=== PATIENT | male | born 1940 | race Caucasian/White ===

== ENCOUNTER 2023-12-16 15:03 | Inpatient (IN) ==
--- NOTE | 2023-12-16 15:05 | ED Triage Note ---
Date of Service December 16, 2023 Provider in Triage Author: Fred Banks History of Present Illness This patient was briefly evaluated while in triage. An abbreviated physical exam was performed. This patient is a 83-year-old Male who presents to the ED for evaluation of chest pressure x few days. Eyes aren't focusing well. Black stools as well. Noted to be tachyardic. Sent in by PCP today. Physical Exam GENERAL: 83 year old . In no acute distress. SKIN: No lesions or rashes. HEART: Tachycardia LUNGS: Clear to auscultation. ABDOMEN: Bowel sounds normoactive. No guarding or rigidity. No tenderness of palpation. NEURO: Alert and oriented. No deficits. MUSCULOSKELETAL: No deformities to inspection of the extremities. PSYCH: Patient is pleasant and answers all questions appropriately. Initial orders for labs and / or imaging were placed and patient was placed in the waiting area until a bed is available. Please see further documentation for the full ED course.
[2023-12-16 15:56] LABS: Basophils # (auto) 0.04 K/uL (0.00-0.20); Basophils % (auto) 0.6 %; Eosinophils # (auto) 0.08 K/uL (0.00-0.50); Eosinophils % (auto) 1.2 %; Hematocrit (blood only) 42.5 % (42.0-52.0); Hemoglobin 14.3 g/dl (14.0-18.0); Immature Granulocytes # (auto) 0.03 K/uL (0.01-0.20); Immature Granulocytes % (auto) 0.5 %; Lymphocytes # (auto) 1.32 K/uL (1.20-3.40); Lymphocytes % (auto) 19.9 %; Mean Corpuscular Hemoglobin 30.3 pg (25.0-34.0); Mean Corpuscular Hgb Conc 33.6 g/dL (32.0-36.0); Mean Platelet Volume 8.9 fL (9.4-12.4); Monocytes # (auto) 0.62 K/uL (0.11-0.59); Monocytes % (auto) 9.3 %; Neutrophils # (auto) 4.55 K/uL (1.40-6.50); Neutrophils % (auto) 68.5 %; Platelet Count 251 K/uL (130-400); RDW Coefficient of Variation 13.7 % (11.5-14.5); RDW Standard Deviation 44.8 fL (36.4-46.3); Red Blood Count 4.72 M/uL (4.70-6.10); White Blood Count 6.64 K/ul (4.8-10.8)
[2023-12-16 16:14] LABS: Albumin Globulin Ratio 1.5 (0.9-2); Albumin Level 4.3 gm/dl (3.4-5.0); BUN Creatinine Ratio 15.6 (10-20); Bilirubin,Total 0.5 mg/dl (0.2-1.0); Calcium 9.2 mg/dl (8.6-10.3); Creatinine Clr Calc Pharmacy 34.5 ml/min; Est GFR (African American) 43.2 ml/min; Est GFR (Non-African American) 37.3 ml/min; Globulin 2.9 gm/dl (2.5-4.0); Magnesium 2.1 mg/dl (1.7-2.4); Potassium 4.1 mmol/L (3.5-5.1); Total Protein 7.2 gm/dl (6.0-8.3)
[2023-12-16 16:19] LABS: Troponin I High Sensitivity 6.9 pg/ml (0-20)
[2023-12-16 16:25] LABS: INR 1.1 (0.9-1.1); Partial Thromboplastin Ratio 0.9; Partial Thromboplastin Time 23 Seconds (21-31); Prothrombin Time 11.4 Seconds (9.0-12.0)
--- NOTE | 2023-12-16 16:25 | XRay Report ---
SINGLE VIEW CHEST CLINICAL HISTORY: Chest pressure FINDINGS: A PA chest radiograph is compared to study dated 04/01/2018 and correlated with chest CT da geovanny 03/15/2022. There is a moderate hiatal hernia. The heart is enlarged noting atherosclerotic calcif ication of the thoracic aorta. The pulmonary vasculature is noncongested. Scattered calcified granulo mas are observed. Atelectasis is noted at the left lung base. No airspace consolidation or pleural ef fusion is identified. No pneumothorax is seen. The skeletal structures are osteopenic. The bony thora x is grossly intact. IMPRESSION: 1. Cardiomegaly with no active disease in the chest. 2. Hiatal hernia. ACT 112: Negative or not required by law. Electronically signed by: Varghese Rosales M.D. 12/16/2023 4:24 PM
[2023-12-16 16:28] LABS: Thyroid Stimulating Hormone 1.741 uIu/ml (0.300-4.500)
--- NOTE | 2023-12-16 16:51 | Electrocardiogram Report ---
Test Reason : Blood Pressure : / mmHG Vent. Rate : 080 BPM Atrial Rate : 080 BPM P-R Int : 174 ms QRS Dur : 120 ms QT Int : 362 ms P-R-T Axes : 071 041 042 degrees QTc Int : 417 ms Normal sinus rhythm Right bundle branch block Abnormal ECG When compared with ECG of 01-APR-2018 12:09, Right bundle branch block is now Present Confirmed by Saad Lehman ([id number]) on 12/16/2023 4:50:40 PM Referred By: Confirmed By:Saad Lehman
[2023-12-16] MEDS: PANTOprazole 80 MG in DEXTROSE 5% 100 ML IV ONE (18:29)
[2023-12-16] MEDS: PANTOPRAZOLE BOLUS/DRIP IV STA (18:46)
[2023-12-16] MEDS: PANTOprazole 40 MG in DEXTROSE 5% MINI-B 100 ML IV SCH (18:48)
--- NOTE | 2023-12-16 19:05 | History & Physical Report ---
Date of Service December 16, 2023 Assessment & Plan (1) GI bleed: Plan: Pt is a 83 yo male with PMH of peripheral neuropathy, SCC (for which he follows with a dermatology), GERD/PUD (many years ago), and hx of diverticulitis presenting by recommendation of his PCP for further evaluation. GI bleed - dark stools xdays per pt; FOBT positive - Hgb upon admission 14.3; repeat pending- type and screen ordered but blood consent NOT obtained as Hgb stable - unsure if upper GI source vs. lower GI source as pt has hx of GERD/PUD and has not had a colonoscopy for many years - low suspicion that pt's chronic ambulatory dysfunction is secondary to anemia/GI bleeding as pt's Hgb stable - will order CTAP for further evaluation especially considering pt's RUQ tenderness - will keep NPO, continue IV PPI daily, IVF - consider GI consult for inpatient scopes if Hgb drops; otherwise, recommend further discussion about outpatient scopes considering pt's age, etc Ambulatory dysfunction - pt has had previous work up including CT scan, brain MRI, and carotid doppler which all were negative - pt also had heart monitor (worn for a few days) which revealed sinus bradycardia (down to the 30s); will monitor on tele while hospitalized for arrhythmias, bradycardia, etc - pt also evaluated by neurology who concluded neuropathy is likely contributing to pt's ambulatory dysfunction - EKG upon admission showed NSR with RBBB - although previously checked, will add B12 and folate to AM labs - pt may benefit from PT/OT as an inpatient and outpatient to help with continued ambulatory dysfunction CKD - baseline appears to be 1.5-1.6 - Cr upon admission 1.67 Elevated PSA - 12/2022 10.78; elevation appears chronic- at least dating back to 2019 when pt had a prostate MRI (2019) which showed no lesions of concerns - pt's family concerned as pt's son has stage IV prostate cancer - low suspicion that pt's elevated PSA is related to malignancy as it has been chronically elevated and previously evaluated w/o concerns for malignancy Diet: NPO, IVF at 125 mL/hr DVT ppx: deferred as pt is actively bleeding Code: conditional- no intubation. Pt's is his surrogate decision maker if necessary Dispo: admit to med/tele (2) Ambulatory dysfunction: (3) Polyneuropathy: (4) Hypothyroid: (5) High prostate specific antigen (PSA): History of Present Illness Chief Complaint: concern for symptomatic anemia Primary Care Provider: AMADO Byers Pt is a 83 yo male with PMH of peripheral neuropathy, SCC (for which he follows with a dermatology), GERD/PUD (many years ago), and hx of diverticulitis present ing by recommendation of his PCP for further evaluation. Pt notes he has been having "episodes" for at least a year now. He describes them as he cannot walk straight and his eyes cannot focus. He denies black changes in his vision. He does not feel like he is going to pass out (and he has not passed out). He does not feel dizzy. He denies things spinning. He does note that he has a hx of peripheral neuropathy but this does not affect his feet- only from his knees to ankles. Pt also notes that he has had black stools the past 3 days. His last colonoscopy was many years ago. He notes that he had polyps removed at prior colonoscopies but was never told the polyps were cancerous/pre-cancerous. He denies BRBPR; however, his notes about 1 week ago pt asked her if she was bleeding because there was bright red blood in the toilet that he was cleaning up. Pt endorses occasional alcohol use. In the ER, pt was given pantoprazole bolus and 40 mg IV. Allergies Allergy/AdvReac Type Severity Reaction Status Date / Time No Known Allergies Allergy Unknown Verified 12/16/23 18:20 Home Medications Medication Instructions Recorded Confirmed Type aspirin 81 mg tablet,delayed 81 mg PO HS 03/24/18 12/16/23 History release (Adult Aspirin Regimen) calcium carbonate (Tums) 200 mg PO DIRECTED PRN GERD 08/22/22 12/16/23 History tamsulosin 0.4 mg capsule (Flomax) 0.4 mg PO DIRECTED PRN WHEN 08/22/22 12/16/23 History FEEL URINARY PRESSURE/HX STONES levothyroxine 100 mcg tablet 100 mcg PO DAILY #30 tabs 04/07/23 12/16/23 Rx cholecalciferol (vitamin D3) 125 125 mcg PO DAILY 12/16/23 12/16/23 History mcg (5,000 unit) tablet (Vitamin D3) cyanocobalamin (vitamin B-12) 500 500 mcg PO DAILY 12/16/23 12/16/23 History mcg tablet (Vitamin B-12) multivitamin 1 tab PO HS 12/16/23 12/16/23 History omega 7-aoh-pcf-fish oil 1,200 mg 2 cap PO QAM 12/16/23 12/16/23 History (144 mg-216 mg) capsule (Fish Oil) Past Med/Surg History Problem List (Updated 12/16/23 @ 19:20 by Carine Navas DO) Ambulatory dysfunction GI bleed Bilateral nephrolithiasis Visual changes Lightheaded Hypothyroid Renal insufficiency, mild High prostate specific antigen (PSA) Right leg pain Bilateral leg numbness Fatigue Low back pain Peripheral neuropathy Essential hypertriglyceridemia Polyneuropathy Vitamin D insufficiency Medical History Speech abnormality Squamous cell carcinoma Renal insufficiency, mild Raynauds phenomenon Hiatal hernia CKD (chronic kidney disease) History of diverticulitis History of peptic ulcer disease Osteoarthritis Kidney stones Peptic ulcer disease GERD (gastroesophageal reflux disease) Skin cancer of scalp Hypothyroid Surgical History History of left cataract surgery Hx of lithotripsy Hx of colonoscopy Hx of skin malignancy History of appendectomy History of colonoscopy History of tonsillectomy History of adenoidectomy History of appendectomy Family History Brother Heart disease Father Heart disease Son Family history of diabetes mellitus Denies family history of Ovarian cancer Prostate cancer Myocardial infarction Breast cancer Colorectal cancer Social History Smoking Status: Never smoker Cigarettes Per Day: ocas; Second Hand Exposure: No; Do You Dip or Chew Tobacco: No; Hx Alcohol Use: Yes (HX SOCIAL) Hx Substance Use: No Preferred Language: Wallisian Communication Ability: Effective Visual Impairment: No Limitations Hearing Ability: Use of Hearing Aid Hedge Fund Accountant Required: No Beliefs That Will Affect Care: None marital status: Current Living Situation: Spouse current occupational status: retired How many Children do You have: 4 Feels Safe at Home: Yes Childhood Exposure to Second-Hand Smoke: Yes Diet: regular caffeine: Yes Dental Care, Regularly: No Physical Activity Frequency: Daily Seatbelt Use: always Sunscreen Use: Yes Assistive Devices: Hearing Aid - Bilateral and Other Review of Systems Review of Systems: As per HPI Physical Exam Constitutional: NAD, vitals WNL. Eyes: Conjunctivae normal. Respiratory: CTA bilaterally. Non labored breathing. No rhonchi, wheezing, or crackles. Cardiovascular: RRR. No murmurs noted. No LE edema. Gastrointestinal (Abdomen): Minimally tender in RUQ, +BS. No masses noted. Skin: Various SK/AK noted on scalp/face Neurologic: Sensation grossly intact. No FND appreciated. Psychiatric: Speech of normal pace and content. Mood and affect congruent. Results & Data Results & Data Vital Signs (Past 12 Hours) Vital Signs Temp Pulse Pulse Resp BP BP Pulse Ox 12/16/23 19:00 78 18 169/94 H 98 12/16/23 17:20 77 18 141/76 H 98 12/16/23 15:05 36.7 C 116 H 20 143/72 H 94 O2 Del Method 12/16/23 19:00 Room Air 12/16/23 17:20 Room Air 12/16/23 15:05 Room Air Supervising Physician Co-Signing Physician Notes In General: In general this is a pleasant 83-year-old male who is alert and oriented at the time of my exam. The patient interacts appropriately pleasantly. HEENT: Normocephalic atraumatic pupils are equal round and reactive to light bilaterally. No scleral icterus no conjunctival injection external auditory canals are patent septum is in the midline nose is without discharge oral mucosa is pink and moist without lesion. NECK: Supple no rigidity no lymphadenopathy no thyromegaly no carotid bruits no JVD no masses. HEART: Regular rate and rhythm I do not appreciate any ectopy or rub. No murmur. LUNGS: Clear to auscultation bilaterally and anteriorly with no evidence of adventitious sounds/wheezes rales or rhonchi. ABDOMEN: Mild tenderness to palpation in the midepigastric region. No rebound no peritoneal signs positive bowel sounds. No appreciable organomegaly. EXTREMITIES: Intact, no peripheral cyanosis, clubbing or edema. Strength is 5 out of 5 in extremities x4, no pathological reflexes. NEUROLOGICAL: Cranial nerves II through XII are grossly intact with no focal deficit elicited upon examination. No tremor. Assessment/plan: As described above. Please refer to orders for further planning. We have written orders to on-call physician to be called with CT scan results. Will keep the patient NPO. Do serial H&H's. If hemoglobin drops significantly consider GI consultation for EGD. Resident Activity Tracking Resident Involvement: Resident Care Provided Care Provided: Adult [facility] Medicine (4) Hypothyroid Hypothyroidism type: acquired Qualified Code(s): E03.9 - Hypothyroidism, unspecified
[2023-12-16] MEDS ORDERED: ACETAMINOPHEN 1,000 MG/100 ML VIAL IV PRN (19:11)
[2023-12-16] MEDS ORDERED: ONDANSETRON INJ 2 MG/ML 2 ML VIAL IV PRN (19:11)
[2023-12-16] MEDS: LACTATED RINGER'S 1,000 ML IV SCH (21:05)
[2023-12-16 21:51] LABS: Hematocrit (blood only) 39.4 % (42.0-52.0); Hemoglobin 13.3 g/dl (14.0-18.0)
--- NOTE | 2023-12-16 22:32 | Emergency Department Note ---
History of Present Illness General Chief complaint: GI Bleed Stated complaint: CHEST PRESSURE, SOB, EYES NOT FOCUSING, STUMBLING Time Seen by Provider: 12/16/23 17:15 History of Present Illness Provider Complaint: + melena Onset (ago): 2 day(s) Pain Consistency: + constant Relieved By: + none Exacerbated By: + none Context: no hemorrhoids, no rectal trauma or no alcohol ingestion(in addition to abuse) Associated symptoms: + shortness of breath and + other (Chest pain); no abdominal pain, no nausea, no vomiting, no headaches or no loss of appetite Home Medications Medication Instructions Recorded Confirmed Type aspirin 81 mg tablet,delayed 81 mg PO HS 03/24/18 12/16/23 History release (Adult Aspirin Regimen) calcium carbonate (Tums) 200 mg PO DIRECTED PRN GERD 08/22/22 12/16/23 History tamsulosin 0.4 mg capsule (Flomax) 0.4 mg PO DIRECTED PRN WHEN 08/22/22 12/16/23 History FEEL URINARY PRESSURE/HX STONES levothyroxine 100 mcg tablet 100 mcg PO DAILY #30 tabs 04/07/23 12/16/23 Rx cholecalciferol (vitamin D3) 125 125 mcg PO DAILY 12/16/23 12/16/23 History mcg (5,000 unit) tablet (Vitamin D3) cyanocobalamin (vitamin B-12) 500 500 mcg PO DAILY 12/16/23 12/16/23 History mcg tablet (Vitamin B-12) multivitamin 1 tab PO HS 12/16/23 12/16/23 History omega 9-iwz-xbq-fish oil 1,200 mg 2 cap PO QAM 12/16/23 12/16/23 History (144 mg-216 mg) capsule (Fish Oil) Allergies Allergy/AdvReac Type Severity Reaction Status Date / Time No Known Allergies Allergy Unknown Verified 12/16/23 18:20 Past Med/Surg History Problem List (Updated 12/16/23 @ 22:32 by Wally Staley MD) Dyspnea (Acute) Chest pain (Acute) Ambulatory dysfunction GI bleed (Acute) Bilateral nephrolithiasis Visual changes Lightheaded Hypothyroid Renal insufficiency, mild High prostate specific antigen (PSA) Right leg pain Bilateral leg numbness Fatigue Low back pain Peripheral neuropathy Essential hypertriglyceridemia Polyneuropathy Vitamin D insufficiency Medical History Speech abnormality JUN 2022/SPEECH DISTURBANCE/OFF BALANCE/SOB (OXYGEN LEVEL NORMAL)...EVAL [facility]...NO FINDINGS/NO RE-OCCURENCE UNKNOWN ETIOLOGY Squamous cell carcinoma HX Raynauds phenomenon DENIES Hiatal hernia DX CKD (chronic kidney disease) CAROLINE 03/2018 IMPROVING- ?OBSTRUCTIVE ETIOLOGY PT DENIES KIDNEY PROBELMS - VERIFIES HX KIDNEY STONES History of diverticulitis History of peptic ulcer disease HX Osteoarthritis Kidney stones HX Peptic ulcer disease H/O IN THE GERD (gastroesophageal reflux disease) HX/OCC/NOT A CURRENT PROBLEM Skin cancer of scalp HX /REMOVED Surgical History History of left cataract surgery Hx of lithotripsy LEFT ESWL= 04/03/18= LMA#5 "ATRAUMATIC" Hx of colonoscopy Hx of skin malignancy S/P RESECTION History of appendectomy History of colonoscopy History of tonsillectomy History of adenoidectomy History of appendectomy Family History Brother Heart disease Father Heart disease Son Family history of diabetes mellitus Denies family history of Ovarian cancer Prostate cancer Myocardial infarction Breast cancer Colorectal cancer Social History Smoking Status: Never smoker Cigarettes Per Day: ocas; Second Hand Exposure: No; Do You Dip or Chew Tobacco: No; Hx Alcohol Use: Yes (HX SOCIAL) Hx Substance Use: No Preferred Language: Kosovan Communication Ability: Effective Visual Impairment: No Limitations Hearing Ability: Use of Hearing Aid Administration Manager Required: No Beliefs That Will Affect Care: None marital status: Current Living Situation: Spouse current occupational status: retired How many Children do You have: 4 Feels Safe at Home: Yes Childhood Exposure to Second-Hand Smoke: Yes Diet: regular caffeine: Yes Dental Care, Regularly: No Physical Activity Frequency: Daily Seatbelt Use: always Sunscreen Use: Yes Assistive Devices: Hearing Aid - Bilateral and Other Physical Exam 2 Vital Signs: Vital Signs - 24 hr 12/16/23 15:05 12/16/23 17:20 12/16/23 19:00 Temperature 36.7 C Temperature Source Skin Pulse Rate 116 H Pulse Rate [Apical ] 77 78 Pulse Rhythm [Apic al] Regular Respiratory Rate 20 18 18 Respiratory Effort / Characteristics Non-Labored Sponta neous Respiratory Depth Normal Respiratory Patter n Regular Blood Pressure 143/72 H Blood Pressure [Ri ght Arm] 141/76 H 169/94 H Blood Pressure Ruthann n 95 Blood Pressure Ruthann n [Right Arm] 97 119 Pulse Oximetry 94 98 98 Oxygen Delivery Me thod Room Air Room Air Room Air Sepsis Recent Feve r Within 48 Hours No Sepsis New/Unexpla ined Change in Men ingrid Status No Sepsis Action Take n by Nursing No Action Required Physical Exam: Physical Exam GENERAL: She is oriented to person, place, and time. She appears well-developed and well-nourished. She does not appear distressed. HENT: Exam performed. -Head: Normocephalic and atraumatic. -Right Ear: External ear normal. No mastoid erythema -Left Ear: External ear normal. No mastoid erythema -Mouth/Throat: The oropharynx is clear and moist. No trismus in the jaw. No dental abscesses or uvula swelling. No oropharyngeal exudate or tonsillar abscesses. EYES: Conjunctivae and EOM are normal.Right eye exhibits no discharge. Left eye exhibits no discharge. No scleral icterus. NECK: Normal range of motion. Neck supple. No JVD present. No tracheal deviation and normal range of motion present. CV: Normal rate, regular rhythm, normal heart sounds and intact distal pulses. There is no peripheral edema. Palpable radial pulses bue. PULM/CHEST: Effort normal and breath sounds normal. No respiratory distress. No stridor. She has no wheezes. She has no rales. -Chest Wall: She exhibits no tenderness. ABD: The abdomen is soft. Bowel sounds are normal. She has no distension. No mass is present. There is no tenderness. There is no rebound, no guarding, no Lai's sign and no tenderness at McBurney's point. Rovsig negative Rectal: Melanotic stool. Hemoccult positive. Course Course 1714: The patient was evaluated in room B6. A complete history and physical exam was performed Administered Medications Pantoprazole Sodium 40 mg/ (Dextrose) 100 mls @ 20 mls/hr IV Q5H NYA Stop: 01/15/24 17:59 Last Admin: 12/16/23 18:48 Dose: 8 mg/hr, 20 mls/hr Documented By: NICKI Lactated Ringer's (Lr) 1,000 mls @ 125 mls/hr IV .Q8H NYA Stop: 12/17/23 19:44 Last Admin: 12/16/23 21:05 Dose: 125 mls/hr Documented By: TY Discontinued Medications Pantoprazole Sodium 80 mg/ (Dextrose) 120 mls @ 480 mls/hr IV NOW ONE Stop: 12/16/23 17:57 Last Infusion: 12/16/23 18:45 Dose: Infused Documented By: Admin: 12/16/23 18:29 Dose: 480 mls/hr Documented By: NICKI Pantoprazole Sodium (Pantoprazole Bolus/Drip) 1 each IV NOW STA Stop: 12/16/23 17:44 Last Admin: 12/16/23 18:46 Dose: Not Given Documented By: NICKI Medical Decision Making Laboratory Data Attestation: I reviewed the patient's lab results. 12/16/23 21:17 12/16/23 15:34 Lab Results 12/16/23 Range/Units 15:34 WBC 6.64 (4.8-10.8) K/ul RBC 4.72 (4.70-6.10) M/uL Hgb 14.3 (14.0-18.0) g/dl Hct 42.5 (42.0-52.0) % MCV 90.0 (80.0-100.0) fL MCH 30.3 (25.0-34.0) pg MCHC 33.6 (32.0-36.0) g/dL RDW Std Deviation 44.8 (36.4-46.3) fL RDW Coeff of Courtney 13.7 (11.5-14.5) % Plt Count 251 (130-400) K/uL MPV 8.9 L (9.4-12.4) fL Immature Gran % (Auto) 0.5 % Neut % (Auto) 68.5 % Lymph % (Auto) 19.9 % Putnam % (Auto) 9.3 % Eos % (Auto) 1.2 % Baso % (Auto) 0.6 % Neut # (Auto) 4.55 (1.40-6.50) K/uL Lymph # (Auto) 1.32 (1.20-3.40) K/uL Putnam # (Auto) 0.62 H (0.11-0.59) K/uL Eos # (Auto) 0.08 (0.00-0.50) K/uL Baso # (Auto) 0.04 (0.00-0.20) K/uL Immature Gran # (Auto) 0.03 (0.01-0.20) K/uL PT 11.4 (9.0-12.0) Seconds INR 1.1 (0.9-1.1) APTT 23 (21-31) Seconds PTT Ratio 0.9 Sodium 138 (136-145) mmol/L Potassium 4.1 (3.5-5.1) mmol/L Chloride 107 (98-107) mmol/L Carbon Dioxide 25 (21-32) mmol/L Anion Gap 6 (3-11) BUN 26 H (6-23) mg/dl Creatinine 1.67 H (0.6-1.4) mg/dl Est Cr Clr Drug Dosing 34.5 ml/min Est GFR ( Amer) 43.2 ml/min Est GFR (Non-Af Amer) 37.3 ml/min BUN/Creatinine Ratio 15.6 (10-20) Glucose 119 H (70-99(Fasting)) mg/dl Calcium 9.2 (8.6-10.3) mg/dl Magnesium 2.1 (1.7-2.4) mg/dl Total Bilirubin 0.5 (0.2-1.0) mg/dl AST 23 (13-39) U/L ALT 13 (7-52) U/L Alkaline Phosphatase 52 (34-104) U/L Troponin I High Sens 6.9 (0-20) pg/ml Total Protein 7.2 (6.0-8.3) gm/dl Albumin 4.3 (3.4-5.0) gm/dl Globulin 2.9 (2.5-4.0) gm/dl Albumin/Globulin Ratio 1.5 (0.9-2) Lipase 46 (11-82) U/L TSH 1.741 (0.300-4.500) uIu/ml Blood Type A Positive Antibody Screen NEGATIVE ECG Data Attestation: I personally reviewed and interpreted this ECG as follows: Rate (beats per minute): 80 Rhythm: normal sinus Findings: + RBBB; no ST depression, no ST elevation or no prolonged QT MDM Narrative Cardiac monitoring: An order was placed for continuous cardiac monitoring. The monitor shows a rate of 80 with sinus rhythm interpreted by me Patient was seen during a time of extreme volume and extreme acuity in the emergency department. Nursing triage protocols were initiated and labs were drawn by protocol in the triage area. Vital signs stable. Labs show creatinine of 1.67 at the patient's baseline. Hemoglobin stable. Given the patient's reported chest pain difficulty breathing with melanotic stools patient will be admitted to the hospitalist team. Protonix bolus and drip started. Impression & Plan GI bleed, Chest pain, Dyspnea Discharge Plan Visit Data Chief Complaint: GI Bleed Stated Complaint: CHEST PRESSURE, SOB, EYES NOT FOCUSING, STUMBLING ED Provider: Wally Staley Discharge Problem: GI bleed, Chest pain, Dyspnea Patient Disposition: Admitted As Inpatient Discharge Instructions Interventions: ED Discharge Assessment Last Done: 12/16/23 21:50 Discharge Problem: GI bleed Qualifiers: GI bleed type/associated pathology: melena Qualified Code(s): K92.1 - Melena Chest pain Qualifiers: Chest pain type: unspecified Qualified Code(s): R07.9 - Chest pain, unspecified Dyspnea Qualifiers: Dyspnea type: unspecified Qualified Code(s): R06.00 - Dyspnea, unspecified
--- NOTE | 2023-12-16 23:56 | CT Scan Report ---
Exam(s): CT ABDOMEN + PELVIS Without Contrast EXAM: CT Abdomen and Pelvis Without Intravenous Contrast CLINICAL HISTORY: Reason for exam: RUQ abdominal pain. TECHNIQUE: Axial computed tomography images of the abdomen and pelvis without intravenous contrast. CTDI is 22.54 mGy and DLP is 1185.96 mGy-cm. Automated exposure control was utilized for the study. A dose lowering technique was utilized adhering to the principles of ALARA. COMPARISON: No relevant prior studies available. FINDINGS: Lung bases: Unremarkable. No mass. No consolidation. Mediastinum: Moderate hiatal hernia. ABDOMEN: Liver: Low-attenuation focus in segment 6 of the liver measures 1.1 cm, too small to characterize. Gallbladder and bile ducts: Unremarkable. No calcified stones. No ductal dilation. Pancreas: Unremarkable. No ductal dilation. Spleen: Unremarkable. No splenomegaly. Adrenals: Unremarkable. No mass. Kidneys and ureters: Nonobstructing 3 mm RIGHT lower pole renal stone. No hydronephrosis. Stomach and bowel: Diverticulosis, without acute diverticulitis. No small bowel obstruction. No free intraperitoneal air. PELVIS: Appendix: No findings to suggest acute appendicitis. Bladder: Unremarkable. No stones. Reproductive: Enlarged prostate gland measures 5.5 cm. ABDOMEN and PELVIS: Intraperitoneal space: Unremarkable. No free air. No significant fluid collection. Bones/joints: No acute fracture. No dislocation. Soft tissues: Fat-containing RIGHT inguinal hernia. Vasculature: Unremarkable. No abdominal aortic aneurysm. Lymph nodes: Unremarkable. No enlarged lymph nodes. IMPRESSION: 1. No hydronephrosis. 2. Enlarged prostate gland measures 5.5 cm. 3. Moderate hiatal hernia. 4. Nonobstructing 3 mm RIGHT lower pole renal stone. 5. Diverticulosis, without acute diverticulitis. No small bowel obstruction. No free intraperitoneal air. Electronically signed by: Shay Young MD 12/16/23 23:55 PM
[2023-12-17 03:24] LABS: Appearance Urine Clear (Clear); Bacteria Urine Automated None Seen (None Seen); Bilirubin Urine Negative (Negative); Blood Urine Negative (Negative); Cast Urine Automated 0-2 /lpf (0-2); Color Urine Yellow; Epithelial Cell Urine Auto 0-2 /hpf (0-2); Glucose Urine UA Negative (Negative); Ketones Urine Trace (Negative); Leukocyte Esterase Urine 1+ (Negative); Nitrite Urine Negative (Negative); Protein Urine Negative (Negative); RBC Urine Automated 0-2 /hpf (0-2); Specific Gravity Urine 1.014 (1.000-1.030); Urobilinogen Urine Negative (Negative); pH Urine 6.5 (4.5-7.5)
[2023-12-17 07:59] LABS: Basophils # (auto) 0.04 K/uL (0.00-0.20); Basophils % (auto) 0.7 %; Eosinophils # (auto) 0.15 K/uL (0.00-0.50); Eosinophils % (auto) 2.7 %; Hematocrit (blood only) 36.8 % (42.0-52.0); Hemoglobin 12.4 g/dl (14.0-18.0); Immature Granulocytes # (auto) 0.01 K/uL (0.01-0.20); Immature Granulocytes % (auto) 0.2 %; Lymphocytes # (auto) 1.66 K/uL (1.20-3.40); Lymphocytes % (auto) 30.2 %; Mean Corpuscular Hemoglobin 30.2 pg (25.0-34.0); Mean Corpuscular Hgb Conc 33.7 g/dL (32.0-36.0); Mean Corpuscular Volume 89.8 fL (80.0-100.0); Mean Platelet Volume 9.2 fL (9.4-12.4); Monocytes # (auto) 0.55 K/uL (0.11-0.59); Neutrophils # (auto) 3.08 K/uL (1.40-6.50); Neutrophils % (auto) 56.2 %; Platelet Count 217 K/uL (130-400); RDW Coefficient of Variation 13.8 % (11.5-14.5); RDW Standard Deviation 45.3 fL (36.4-46.3); White Blood Count 5.49 K/ul (4.8-10.8)
[2023-12-17 08:09] LABS: Albumin Globulin Ratio 1.4 (0.9-2); Albumin Level 3.6 gm/dl (3.4-5.0); BUN Creatinine Ratio 12.8 (10-20); Bilirubin,Total 0.7 mg/dl (0.2-1.0); Calcium 8.7 mg/dl (8.6-10.3); Est GFR (Non-African American) 43.1 ml/min; Globulin 2.6 gm/dl (2.5-4.0); Magnesium 2.1 mg/dl (1.7-2.4); Potassium 4.7 mmol/L (3.5-5.1); Total Protein 6.2 gm/dl (6.0-8.3)
[2023-12-17 08:36] LABS: Folate (Folic Acid),Ser orPlas > 22.30 ng/ml (>5.38); Vitamin B12 > 1500 pg/ml (180-914)
[2023-12-17] MEDS: PANTOprazole 40 MG in SYRINGE 0 ML IV SCH (11:26)
--- NOTE | 2023-12-17 11:48 | Gastrointestinal Consultation ---
Date of Consultation December 17, 2023 Assessment & Plan (1) GI bleed: Plan 83 year old male with history of peripheral neuropathy, SCC (for which he follows with a dermatology), GERD/PUD years ago admitted with ambulatory dysfunction - GI asked to evaluate as stools are FOBT positive, there is report of black stool prior to admission and 2 pt drop in HGB at 12.4 w/o BUN elevation. He has not had any further BMs since admission. Given clinical presentation, with hemodynamically stability doubt aggressive UGI bleeding. Given the heme positive stool and report of dark stools, he would benefit from endoscopic evaluation. Will discuss timing of such with my attending. Can complete IV PPI today and then convert to PO PPI once daily. Trend H&H. Monitor and document GI output. Transfuse PRN per primary service. Thank you for allowing us to participate in the care of this patient. Please call with any acute changes, questions or concerns. Please see addendum below with additional recommendation from my supervising physician. Supervising Physician Co-Signing Physician Notes I examined the patient and reviewed patient's chart , laboratory data and imaging studies. I agree with with assessment and plan of care as suggested by advanced practice provider. Questions: Heme positive stool, anemia. Suspect anemia is multifactorial, possibly related to chronic kidney disease. The patient will be scheduled for outpatient EGD colonoscopy. History of Present Illness Reason for Consultation: UGI bleed Requesting Physician: Omar Attending Physician: Raymond Nelson History of Present Illness 83 year old male with history of peripheral neuropathy, SCC (for which he follows with a dermatology), GERD/PUD (many years ago) admitted through the ED for about a year of ambulatory dysfunction and unsteadiness - GI asked to evaluate for upper GI bleeding. Pt was seen and evaluated, chart reviewed. Family at bedside who aid in history. Notes that he has been feeling well from a GI standpoint. Denies abd pain. No nausea, vomiting. No GERD. Denies dysphagia. Tolerating oral intake well. Moves his bowels well. Daily stools. Suggests he does not ever assess his stool but did look at his BM two days ago and noted it was black. Has not had a BM since then. He tells me had suspected PUD in the 60's Has never had an EGD Last colonoscopy was 10+ years ago ASA No other NSAIDs No AC No tobacco or alcohol reported to me HGB 14.3 --> 12.4 MCV 89 BUN 19 FOBT positive CTAP 2023: No hydronephrosis. Enlarged prostate gland measures 5.5 cm.. Moderate hiatal hernia. Nonobstructing 3 mm RIGHT lower pole renal stone. Diverticulosis, without acute diverticulitis. No small bowel obstruction. No free intraperitoneal air. Allergies Allergy/AdvReac Type Severity Reaction Status Date / Time No Known Allergies Allergy Unknown Verified 12/16/23 18:20 Home Medications Medication Instructions Recorded Confirmed Type aspirin 81 mg tablet,delayed 81 mg PO HS 03/24/18 12/16/23 History release (Adult Aspirin Regimen) calcium carbonate (Tums) 200 mg PO DIRECTED PRN GERD 08/22/22 12/16/23 History tamsulosin 0.4 mg capsule (Flomax) 0.4 mg PO DIRECTED PRN WHEN 08/22/22 12/16/23 History FEEL URINARY PRESSURE/HX STONES levothyroxine 100 mcg tablet 100 mcg PO DAILY #30 tabs 04/07/23 12/16/23 Rx cholecalciferol (vitamin D3) 125 125 mcg PO DAILY 12/16/23 12/16/23 History mcg (5,000 unit) tablet (Vitamin D3) cyanocobalamin (vitamin B-12) 500 500 mcg PO DAILY 12/16/23 12/16/23 History mcg tablet (Vitamin B-12) multivitamin 1 tab PO HS 12/16/23 12/16/23 History omega 1-psw-fqp-fish oil 1,200 mg 2 cap PO QAM 12/16/23 12/16/23 History (144 mg-216 mg) capsule (Fish Oil) Patient History Medical History Speech abnormality JUN 2022/SPEECH DISTURBANCE/OFF BALANCE/SOB (OXYGEN LEVEL NORMAL)...EVAL [facility]...NO FINDINGS/NO RE-OCCURENCE UNKNOWN ETIOLOGY Squamous cell carcinoma HX Raynauds phenomenon DENIES Hiatal hernia DX CKD (chronic kidney disease) CAROLINE 03/2018 IMPROVING- ?OBSTRUCTIVE ETIOLOGY PT DENIES KIDNEY PROBELMS - VERIFIES HX KIDNEY STONES History of diverticulitis History of peptic ulcer disease HX Osteoarthritis Kidney stones HX Peptic ulcer disease H/O IN THE GERD (gastroesophageal reflux disease) HX/OCC/NOT A CURRENT PROBLEM Skin cancer of scalp HX /REMOVED Surgical History History of left cataract surgery Hx of lithotripsy LEFT ESWL= 04/03/18= LMA#5 "ATRAUMATIC" Hx of colonoscopy Hx of skin malignancy S/P RESECTION History of appendectomy History of colonoscopy History of tonsillectomy History of adenoidectomy History of appendectomy Family History Brother Heart disease Father Heart disease Son Family history of diabetes mellitus Denies family history of Ovarian cancer Prostate cancer Myocardial infarction Breast cancer Colorectal cancer Social History Smoking Status: Never smoker Cigarettes Per Day: ocas; Second Hand Exposure: No; Do You Dip or Chew Tobacco: No; Hx Alcohol Use: Yes Alcohol type: beer and wine Hx Substance Use: No Preferred Language: Argentine Communication Ability: Effective Visual Impairment: No Limitations Hearing Ability: Use of Hearing Aid 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 Physical Exam Constitutional: WD/WN, vitals as above Respiratory: normal respiratory effort, lungs clear to auscultation Cardiovascular: Rate/Rhythm: regular rate and regular rhythm Gastrointestinal (Abdomen): normal bowel sounds, soft, nontender, no hepatosplenomegaly Skin: no rashes, warm and dry Results & Data Vital Signs (Past 12 Hours) Vital Signs Temp Pulse Pulse Resp BP Pulse Ox O2 Del Method 12/17/23 10:47 55 L 17 144/72 H 95 Room Air 12/17/23 07:56 61 12/17/23 07:37 36.5 C 62 16 143/74 H 94 Room Air 12/17/23 03:09 36.6 C 72 18 133/75 97 Room Air Laboratory Results 12/17/23 12/17/2324 Range/Units Unknown 07:21 21:17 WBC 5.49 (4.8-10.8) K/ul RBC 4.10 L (4.70-6.10) M/uL Hgb 12.4 L 13.3 L (14.0-18.0) g/dl Hct 36.8 L 39.4 L (42.0-52.0) % MCV 89.8 (80.0-100.0) fL MCH 30.2 (25.0-34.0) pg MCHC 33.7 (32.0-36.0) g/dL RDW Std Deviation 45.3 (36.4-46.3) fL RDW Coeff of Courtney 13.8 (11.5-14.5) % Plt Count 217 (130-400) K/uL MPV 9.2 L (9.4-12.4) fL Immature Gran % (Auto) 0.2 % Neut % (Auto) 56.2 % Lymph % (Auto) 30.2 % [place] % (Auto) 10.0 % Eos % (Auto) 2.7 % Baso % (Auto) 0.7 % Neut # (Auto) 3.08 (1.40-6.50) K/uL Lymph # (Auto) 1.66 (1.20-3.40) K/uL [place] # (Auto) 0.55 (0.11-0.59) K/uL Eos # (Auto) 0.15 (0.00-0.50) K/uL Baso # (Auto) 0.04 (0.00-0.20) K/uL Immature Gran # (Auto) 0.01 (0.01-0.20) K/uL PT (9.0-12.0) Seconds INR (0.9-1.1) APTT (21-31) Seconds PTT Ratio Sodium 139 (136-145) mmol/L Potassium 4.7 (3.5-5.1) mmol/L Chloride 109 H (98-107) mmol/L Carbon Dioxide 25 (21-32) mmol/L Anion Gap 5 (3-11) BUN 19 (6-23) mg/dl Creatinine 1.48 H (0.6-1.4) mg/dl Est Cr Clr Drug Dosing 39.0 ml/min Est GFR ( Amer) 50.0 ml/min Est GFR (Non-Af Amer) 43.1 ml/min BUN/Creatinine Ratio 12.8 (10-20) Glucose 97 (70-99(Fasting)) mg/dl Calcium 8.7 (8.6-10.3) mg/dl Magnesium 2.1 (1.7-2.4) mg/dl Total Bilirubin 0.7 (0.2-1.0) mg/dl AST 23 (13-39) U/L ALT 11 (7-52) U/L Alkaline Phosphatase 43 (34-104) U/L Troponin I High Sens (0-20) pg/ml Total Protein 6.2 (6.0-8.3) gm/dl Albumin 3.6 (3.4-5.0) gm/dl Globulin 2.6 (2.5-4.0) gm/dl Albumin/Globulin Ratio 1.4 (0.9-2) Lipase (11-82) U/L Vitamin B12 > 1500 H (180-914) pg/ml Folate > 22.30 (>5.38) ng/ml TSH (0.300-4.500) uIu/ml Urine Color Yellow Urine Appearance Clear (Clear) Urine pH 6.5 (4.5-7.5) Ur Specific [place] 1.014 (1.000-1.030) Urine Protein Negative (Negative) Urine Glucose (UA) Negative (Negative) Urine Ketones Trace H (Negative) Urine Blood Negative (Negative) Urine Nitrite Negative (Negative) Urine Bilirubin Negative (Negative) Urine Urobilinogen Negative (Negative) Ur Leukocyte Esterase 1+ H (Negative) Urine WBC (Auto) 6-10 H (0-5) /hpf Urine RBC (Auto) 0-2 (0-2) /hpf U Hyaline Cast (Auto) 0-2 (0-2) /lpf U Epithel Cells (Auto) 0-2 (0-2) /hpf Urine Bacteria (Auto) None Seen (None Seen) Blood Type Antibody Screen 12/16/23 Range/Units 15:34 WBC 6.64 (4.8-10.8) K/ul RBC 4.72 (4.70-6.10) M/uL Hgb 14.3 (14.0-18.0) g/dl Hct 42.5 (42.0-52.0) % MCV 90.0 (80.0-100.0) fL MCH 30.3 (25.0-34.0) pg MCHC 33.6 (32.0-36.0) g/dL RDW Std Deviation 44.8 (36.4-46.3) fL RDW Coeff of Courtney 13.7 (11.5-14.5) % Plt Count 251 (130-400) K/uL MPV 8.9 L (9.4-12.4) fL Immature Gran % (Auto) 0.5 % Neut % (Auto) 68.5 % Lymph % (Auto) 19.9 % [place] % (Auto) 9.3 % Eos % (Auto) 1.2 % Baso % (Auto) 0.6 % Neut # (Auto) 4.55 (1.40-6.50) K/uL Lymph # (Auto) 1.32 (1.20-3.40) K/uL [place] # (Auto) 0.62 H (0.11-0.59) K/uL Eos # (Auto) 0.08 (0.00-0.50) K/uL Baso # (Auto) 0.04 (0.00-0.20) K/uL Immature Gran # (Auto) 0.03 (0.01-0.20) K/uL PT 11.4 (9.0-12.0) Seconds INR 1.1 (0.9-1.1) APTT 23 (21-31) Seconds PTT Ratio 0.9 Sodium 138 (136-145) mmol/L Potassium 4.1 (3.5-5.1) mmol/L Chloride 107 (98-107) mmol/L Carbon Dioxide 25 (21-32) mmol/L Anion Gap 6 (3-11) BUN 26 H (6-23) mg/dl Creatinine 1.67 H (0.6-1.4) mg/dl Est Cr Clr Drug Dosing 34.5 ml/min Est GFR ( Amer) 43.2 ml/min Est GFR (Non-Af Amer) 37.3 ml/min BUN/Creatinine Ratio 15.6 (10-20) Glucose 119 H (70-99(Fasting)) mg/dl Calcium 9.2 (8.6-10.3) mg/dl Magnesium 2.1 (1.7-2.4) mg/dl Total Bilirubin 0.5 (0.2-1.0) mg/dl AST 23 (13-39) U/L ALT 13 (7-52) U/L Alkaline Phosphatase 52 (34-104) U/L Troponin I High Sens 6.9 (0-20) pg/ml Total Protein 7.2 (6.0-8.3) gm/dl Albumin 4.3 (3.4-5.0) gm/dl Globulin 2.9 (2.5-4.0) gm/dl Albumin/Globulin Ratio 1.5 (0.9-2) Lipase 46 (11-82) U/L Vitamin B12 (180-914) pg/ml Folate (>5.38) ng/ml TSH 1.741 (0.300-4.500) uIu/ml Urine Color Urine Appearance (Clear) Urine pH (4.5-7.5) Ur Specific [place] (1.000-1.030) Urine Protein (Negative) Urine Glucose (UA) (Negative) Urine Ketones (Negative) Urine Blood (Negative) Urine Nitrite (Negative) Urine Bilirubin (Negative) Urine Urobilinogen (Negative) Ur Leukocyte Esterase (Negative) Urine WBC (Auto) (0-5) /hpf Urine RBC (Auto) (0-2) /hpf U Hyaline Cast (Auto) (0-2) /lpf U Epithel Cells (Auto) (0-2) /hpf Urine Bacteria (Auto) (None Seen) Blood Type A Positive Antibody Screen NEGATIVE PG Care Time/CCT Total # of Minutes Spent Total Time Spent with Patient: Total time spent is greater than 50% in coordination of care (as documented) at patient's floor/unit and/or counseling patient: Coding Level of Care Code None Diagnoses GI bleed K92.1 GI bleed type/associated pathology: melena (1) GI bleed GI bleed type/associated pathology: melena Qualified Code(s): K92.1 - Melena
--- NOTE | 2023-12-17 20:23 | Hospitalist Progress Note ---
Date of Service December 17, 2023 Assessment & Plan (1) GI bleed: Plan: Pt is a 83 yo male with PMH of peripheral neuropathy, SCC (for which he follows with a dermatology), GERD/PUD (many years ago), and hx of diverticulitis presenting by recommendation of his PCP for further evaluation. GI bleed - dark stools xdays per pt; FOBT positive - Hgb upon admission 14.3; repeat pending- type and screen ordered but blood consent NOT obtained as Hgb stable - unsure if upper GI source vs. lower GI source as pt has hx of GERD/PUD and has not had a colonoscopy for many years - low suspicion that pt's chronic ambulatory dysfunction is secondary to ane jair/GI bleeding as pt's Hgb stable - will order CTAP for further evaluation especially considering pt's RUQ tenderness -Hemoglobin dropped at 12. -consulted gastro: will hold endscopy unless patient has worsening of hemoglobin Ambulatory dysfunction - pt has had previous work up including CT scan, brain MRI, and carotid doppler which all were negative - pt also had heart monitor (worn for a few days) which revealed sinus bradycardia (down to the 30s); will monitor on tele while hospitalized for arrhythmias, bradycardia, etc - pt also evaluated by neurology who concluded neuropathy is likely contributing to pt's ambulatory dysfunction - EKG upon admission showed NSR with RBBB - pt may benefit from PT/OT as an inpatient and outpatient to help with continued ambulatory dysfunction CKD - baseline appears to be 1.5-1.6 - Cr upon admission 1.67 Elevated PSA - 12/2022 10.78; elevation appears chronic- at least dating back to 2019 when pt had a prostate MRI (2018) which showed no lesions of concerns - pt's family concerned as pt's son has stage IV prostate cancer - low suspicion that pt's elevated PSA is related to malignancy as it has been chronically elevated and previously evaluated w/o concerns for malignancy Code: conditional- no intubation. Pt's is his surrogate decision maker if necessary Dispo: admit to med/tele (2) Ambulatory dysfunction: (3) Polyneuropathy: (4) Hypothyroid: (5) High prostate specific antigen (PSA): Admission and Anticipated Discharge Date Admission Date: December 16, 2023 Subjective Patient reports no new symptoms. Patient is asking for a neurological eval on his intermittent unsteadiness and abnormal vision. Review of Systems Review of Systems: All systems reviewed & are unremarkable except as noted in HPI & below Physical Exam Physical Exam: Patient is lying in bed, in no acute distress. Patient not using accessory muscles to breath. Results & Data Results & Data Vital Signs (Past 12 Hours) Vital Signs Temp Pulse Pulse Resp BP BP Pulse Ox 12/17/23 19:19 36.8 C 66 18 142/66 H 95 12/17/23 15:37 36.6 C 64 16 145/77 H 96 12/17/23 14:49 63 12/17/23 10:47 55 L 17 144/72 H 95 O2 Del Method 12/17/23 19:19 Room Air 12/17/23 15:37 Room Air 12/17/23 14:49 12/17/23 10:47 Room Air PG Care Time/CCT Total # of Minutes Spent Total Time Spent with Patient: Total time spent is greater than 50% in coordination of care (as documented) at patient's floor/unit and/or counseling patient: Coding Level of Care Code 68570 SUB INP/OBS CARE 2/35MIN Diagnoses GI bleed K92.1 GI bleed type/associated pathology: melena Ambulatory dysfunction R26.2 Polyneuropathy G62.9 Acquired hypothyroidism E03.9 Hypothyroidism type: acquired High prostate specific antigen (PSA) R97.20 (1) GI bleed GI bleed type/associated pathology: melena Qualified Code(s): K92.1 - Melena (4) Hypothyroid Hypothyroidism type: acquired Qualified Code(s): E03.9 - Hypothyroidism, unspecified
[2023-12-18 07:32] LABS: Hematocrit (blood only) 38.1 % (42.0-52.0); Hemoglobin 12.8 g/dl (14.0-18.0); Mean Corpuscular Hemoglobin 30.3 pg (25.0-34.0); Mean Corpuscular Hgb Conc 33.6 g/dL (32.0-36.0); Mean Corpuscular Volume 90.3 fL (80.0-100.0); Mean Platelet Volume 9.1 fL (9.4-12.4); Platelet Count 211 K/uL (130-400); RDW Coefficient of Variation 13.7 % (11.5-14.5); RDW Standard Deviation 45.7 fL (36.4-46.3); Red Blood Count 4.22 M/uL (4.70-6.10); White Blood Count 5.49 K/ul (4.8-10.8)
[2023-12-18 07:52] LABS: BUN Creatinine Ratio 10.5 (10-20); Calcium 8.8 mg/dl (8.6-10.3); Creatinine Clr Calc Pharmacy 37.6 ml/min; Est GFR (Non-African American) 41.4 ml/min; Potassium 4.5 mmol/L (3.5-5.1)
--- NOTE | 2023-12-18 09:00 | Neurology Consultation ---
Date of Consultation December 18, 2023 Assessment & Plan (1) Sensory ataxia: History of Present Illness Attending Physician: Raymond Nelson History of Present Illness pt consulted for chronic gait imbalance. pt seen by [facility] neurology already and he apparently wants to see [facility] neurology. pt states when he walked, he feels he is unsteady on his feet. he can walk without cane or assistance most of the times. this has been going on for many years. he would also get almost like tunnel vision change when he stands up too quickly and walking episodically and resolves. he does have anemia likely from GI bleed and also known peripheral neuropathy. no leg weakness. no muscle change. prior mri brain negative. admission HPI:Pt is a 83 yo male with PMH of peripheral neuropathy, SCC (for which he follows with a dermatology), GERD/PUD (many years ago), and hx of diverticulitis presenting by recommendation of his PCP for further evaluation. Pt notes he has been having "episodes" for at least a year now. He describes them as he cannot walk straight and his eyes cannot focus. He denies black changes in his vision. He does not feel like he is going to pass out (and he has not passed out). He does not feel dizzy. He denies things spinning. He does note that he has a hx of peripheral neuropathy but this does not affect his feet- only from his knees to ankles. Pt also notes that he has had black stools the past 3 days. His last colonoscopy was many years ago. He notes that he had polyps removed at prior colonoscopies but was never told the polyps were cancerous/pre-cancerous. He denies BRBPR; however, his notes about 1 week ago pt asked her if she was bleeding because there was bright red blood in the toilet that he was cleaning up. Pt endorses occasional alcohol use. In the ER, pt was given pantoprazole bolus and 40 mg IV. Allergies Allergy/AdvReac Type Severity Reaction Status Date / Time No Known Allergies Allergy Unknown Verified 12/16/23 18:20 Home Medications Medication Instructions Recorded Confirmed Type aspirin 81 mg tablet,delayed 81 mg PO HS 03/24/18 12/16/23 History release (Adult Aspirin Regimen) calcium carbonate (Tums) 200 mg PO DIRECTED PRN GERD 08/22/22 12/16/23 History tamsulosin 0.4 mg capsule (Flomax) 0.4 mg PO DIRECTED PRN WHEN 08/22/22 12/16/23 History FEEL URINARY PRESSURE/HX STONES levothyroxine 100 mcg tablet 100 mcg PO DAILY #30 tabs 04/07/23 12/16/23 Rx cholecalciferol (vitamin D3) 125 125 mcg PO DAILY 12/16/23 12/16/23 History mcg (5,000 unit) tablet (Vitamin D3) cyanocobalamin (vitamin B-12) 500 500 mcg PO DAILY 12/16/23 12/16/23 History mcg tablet (Vitamin B-12) multivitamin 1 tab PO HS 12/16/23 12/16/23 History omega 4-dmd-tqe-fish oil 1,200 mg 2 cap PO QAM 12/16/23 12/16/23 History (144 mg-216 mg) capsule (Fish Oil) Patient History Medical History Speech abnormality JUN 2022/SPEECH DISTURBANCE/OFF BALANCE/SOB (OXYGEN LEVEL NORMAL)...EVAL [facility]...NO FINDINGS/NO RE-OCCURENCE UNKNOWN ETIOLOGY Squamous cell carcinoma HX Raynauds phenomenon DENIES Hiatal hernia DX CKD (chronic kidney disease) CAROLINE 03/2018 IMPROVING- ?OBSTRUCTIVE ETIOLOGY PT DENIES KIDNEY PROBELMS - VERIFIES HX KIDNEY STONES History of diverticulitis History of peptic ulcer disease HX Osteoarthritis Kidney stones HX Peptic ulcer disease H/O IN THE S GERD (gastroesophageal reflux disease) HX/OCC/NOT A CURRENT PROBLEM Skin cancer of scalp HX /REMOVED Surgical History History of left cataract surgery Hx of lithotripsy LEFT ESWL= 04/03/18= LMA#5 "ATRAUMATIC" Hx of colonoscopy Hx of skin malignancy S/P RESECTION History of appendectomy History of colonoscopy History of tonsillectomy History of adenoidectomy History of appendectomy Family History Brother Heart disease Father Heart disease Son Family history of diabetes mellitus Denies family history of Ovarian cancer Prostate cancer Myocardial infarction Breast cancer Colorectal cancer Social History Smoking Status: Never smoker Cigarettes Per Day: ocas; Second Hand Exposure: No; Do You Dip or Chew Tobacco: No; Hx Alcohol Use: Yes Alcohol type: beer and wine Hx Substance Use: No Preferred Language: Salvadorean Communication Ability: Effective Visual Impairment: No Limitations Hearing Ability: Use of Hearing Aid Packing Machine Feeder Required: No Beliefs That Will Affect Care: None marital status: Current Living Situation: Spouse current occupational status: retired How many Children do You have: 4 Feels Safe at Home: Yes Childhood Exposure to Second-Hand Smoke: Yes Diet: regular caffeine: Yes Dental Care, Regularly: No Physical Activity Frequency: Daily Seatbelt Use: always Sunscreen Use: Yes Assistive Devices: None Exam (Neuro) Physical Exam: HEENT: normocephalic grossly Neuro: Mental: AOx4, fluent speech, normal comprehension, no apraxia, no L/R confusion, no neglect CN: PERRL, Full EOM, symmetric face, midline T/U/P, grossly full ROM neck Motor: No abnormal movements, normal tone, 5/5 t/o bilaterally Sens: moderate decrease to vibration distal toes b/l. intact to touch b/l . subtle swaying on rhomberg. Coord: intact DTR: 2+ sym b/l Gait: intact grossly, able to walk with slight balance check at times. good pace. 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 this is chronic condition and no acute changes. Explained the cause and dx to pt. Recommendations: walk with two walking sticks slow postural changes. improve his anemia/GI bleed hydrate and avoid dehydration close monitoring for symptomatic bradycardia (as this was noted on prior cardiac monitoring) no further work up needed from neurology call again if new question. Chart reviewed I have spent more than 50% educating patient about potential diagnosis and neurological evaluation and coordinating care with patient's treatment team. Total time spent (including chart review and coordination of care): 60 min (this includes chart review). Results & Data Vital Signs (Past 12 Hours) Vital Signs Temp Pulse Pulse Resp BP Pulse Ox O2 Del Method 12/18/23 07:46 58 L 12/18/23 07:43 36.8 C 68 16 144/72 H 93 Room Air 12/18/23 03:07 36.6 C 70 18 118/73 93 Room Air 12/18/23 00:02 62 12/17/23 22:19 36.8 C 66 18 114/65 94 Room Air PG Care Time/CCT Total # of Minutes Spent Total Time Spent with Patient: Total time spent is greater than 50% in coordination of care (as documented) at patient's floor/unit and/or counseling patient: Coding Level of Care Code 91401 IN/OBS CONSULT LVL 4,60M Diagnoses Sensory ataxia R27.8
--- NOTE | 2023-12-18 14:25 | Discharge Summary ---
Date of Service December 18, 2023 Admission HPI Per Admitting Provider Pt is a 83 yo male with PMH of peripheral neuropathy, SCC (for which he follows with a dermatology), GERD/PUD (many years ago), and hx of diverticulitis presenting by recommendation of his PCP for further evaluation. Pt notes he has been having "episodes" for at least a year now. He describes them as he cannot walk straight and his eyes cannot focus. He denies black changes in his vision. He does not feel like he is going to pass out (and he has not passed out). He does not feel dizzy. He denies things spinning. He does note that he has a hx of peripheral neuropathy but this does not affect his feet- only from his knees to ankles. Pt also notes that he has had black stools the past 3 days. His last colonoscopy was many years ago. He notes that he had polyps removed at prior colonoscopies but was never told the polyps were cancerous/pre-cancerous. He denies BRBPR; however, his notes about 1 week ago pt asked her if she was bleeding because there was bright red blood in the toilet that he was cleaning up. Pt endorses occasional alcohol use. In the ER, pt was given pantoprazole bolus and 40 mg IV. Principal Diagnosis Likely upper GI bleed Discharge Exam Patient is lying in bed, in no acute distress. Patient not using accessory muscles to breath. heart: RRR lungs: clear Discharge Data Allergies Allergy/AdvReac Type Severity Reaction Status Date / Time No Known Allergies Allergy Unknown Verified 12/16/23 18:20 Consultations 12/16/23 17:44 ED Decision to Admit Stat 12/17/23 11:10 Consult Gastroenterology Routine 12/17/23 20:41 Consult Neurology Routine Ordered Studies 12/16/23 19:58 CT Abdomen and Pelvis [CT abd pelvis wo con] Routine 1. No hydronephrosis. 2. Enlarged prostate gland measures 5.5 cm. 3. Moderate hiatal hernia. 4. Nonobstructing 3 mm RIGHT lower pole renal stone. 5. Diverticulosis, without acute diverticulitis. No small bowel obstruction. No free intraperitoneal air. Hospital Course (1) GI bleed: Pt is a 83 yo male with PMH of peripheral neuropathy, SCC (for which he follows with a dermatology), GERD/PUD (many years ago), and hx of diverticulitis presenting by recommendation of his PCP for further evaluation. GI bleed - dark stools xdays per pt; FOBT positive - Hgb upon admission 14.3; repeat pending- type and screen ordered but blood consent NOT obtained as Hgb stable - unsure if upper GI source vs. lower GI source as pt has hx of GERD/PUD and has not had a colonoscopy for many years - low suspicion that pt's chronic ambulatory dysfunction is secondary to anemia/GI bleeding as pt's Hgb stable -Hemoglobin dropped at 12 but remained stable after PPI was instituted. Patient will be on PPI BID for at least 4 weeks. will hold aspirin. -consulted gastro: recommend outpatient colonoscopy Ambulatory dysfunction - pt has had previous work up including CT scan, brain MRI, and carotid doppler which all were negative - pt also had heart monitor (worn for a few days) which revealed sinus bradycardia (down to the 30s); will monitor on tele while hospitalized for arrhythmias, bradycardia, etc - pt also evaluated by neurology who concluded neuropathy is likely contributing to pt's ambulatory dysfunction as well as orthostatic hypotension. - EKG upon admission showed NSR with RBBB CKD stage 3 - baseline appears to be 1.5-1.6 - Cr upon admission 1.67 Elevated PSA - 12/2022 10.78; elevation appears chronic- at least dating back to 2019 when pt had a prostate MRI (2018) which showed no lesions of concerns - pt's family concerned as pt's son has stage IV prostate cancer - low suspicion that pt's elevated PSA is related to malignancy as it has been chronically elevated and previously evaluated w/o concerns for malignancy (2) Ambulatory dysfunction: (3) Polyneuropathy: (4) Hypothyroid: (5) High prostate specific antigen (PSA): Total Time Total Time Spent Total Time Spent (In Minutes): 32 Discharge Plan Discharge Items Patient Disposition: Home - Self-Care Reason For Visit: GI BLEED, AMBULATORY DYSFUNCTION Discharge Diagnosis: GI bleed Activity: Resume your previous activity Non-emergency contact: Primary Care Provider Call non-emergency contact if: you have any medication questions Follow-up/Referrals: Laureen Kevin CRNP [Primary Care Provider] - 01/01/24 10:30 am Diet: Heart Healthy Ambulatory Orders: Complete Blood Count no Diff (Routine) Timeframe: 1 Week Location: Determined by Patient Ordered By: Raymond Estrella Attending Provider Instructions: Good afternoon Mr. Nieves, You were seen for an upper gastrointestinal bleed. You r bleeding stopped with medications. We will hold your aspirin until you are followed with your PCP. We will also have you start pantoprazole twice a day for 28 days. For constipation, you can take miralax or a stool softener. We will also recommend you recheck your blood count in 1 week. You were also seen by the Neurologist Dr. Green who was able to answer your questions. And also recommended you to use 2 walking sticks. It was a pleasure. I hope you have a great weekend. Kindest regards, Raymond Nelson MD. Pending Studies at Discharge: No Stand-Alone Forms: My [facility] [employer], Smoking Cessation Medications and DC Order Prescriptions: New pantoprazole 40 mg tablet,delayed release (DR/EC) 40 mg PO BID Qty: 60 0RF Continued levothyroxine 100 mcg tablet 100 mcg PO DAILY Qty: 30 11RF tamsulosin [Flomax] 0.4 mg capsule 0.4 mg PO DIRECTED PRN (Reason: WHEN FEEL URINARY PRESSURE/HX STONES) Patient Comments: TOLD ME TAKE NEEDED, DON'T HAVE TO TAKE DAILY - CURRENT NOT REALLY EVERY DAY - MORNING HOURS calcium carbonate [Tums] 200 mg calcium (500 mg) Tablet,Chewable 200 mg PO DIRECTED PRN (Reason: GERD) multivitamin Tablet 1 tab PO HS cyanocobalamin (vitamin B-12) [Vitamin B-12] 500 mcg Tablet 500 mcg PO DAILY cholecalciferol (vitamin D3) [Vitamin D3] 125 mcg (5,000 unit) Tablet 125 mcg PO DAILY omega 4-dmw-orm-fish oil [Fish Oil] 1,200 (144-216) mg Capsule 2 cap PO QAM Held aspirin [Adult Aspirin Regimen] 81 mg tablet,delayed release (DR/EC) 81 mg PO HS Hold Instructions: Resume on 01/01/24. Discharge Orders: Discharge Order (Routine); Ordered 12/18/23 Ordered By: Raymond Barragan/Other Patient Handouts: GI Bleeding Causes and Tests, Anatomy of the Digestive System Admission Data Admit Date/Time: 12/16/23 19:11 Attending Provider: Raymond Nelson Admit Provider: Carine Navas Primary Care Provider: Laureen Kevin Other Providers: Arcadio Jaquez; Chichi Acharya; Allen Nguyen; Theresa Echeverria; Rhea Combs; Carole Roa; Kaylene Maradiaga; Emerald Camacho; Franklyn Jackson; Qasim Bliss; Garo Cooley; Selina Baez; Hailey Booker; Ankita Rivas; Susan Black; Rosanna Monaco; Anika Alas; Houston Guardado; Dom Moran; Jayne Shankar; Joe Gomez Jr; Eliseo Cash; Vish Garibay; Shaun Peña; Jairo Rogers; Juan Muhammad; Maria Luisa Nguyen; Zayra Ba; Aleja Seymour; Nathaniel Green Other Interventions: *Nursing Shift Assessment Last Done: 12/18/23 10:00 Discharge Summary Assessment (RN) Last Done: 12/18/23 17:53 Coding Level of Care Code 68502 INP/OBS DISCH >30 MIN Diagnoses GI bleed K92.1 GI bleed type/associated pathology: melena Ambulatory dysfunction R26.2 Polyneuropathy G62.9 Acquired hypothyroidism E03.9 Hypothyroidism type: acquired High prostate specific antigen (PSA) R97.20
== END 2023-12-18 17:55 | disposition home or self-care (01) | DRG 379 ==
LOC: ED 15:03 → SUATTDRO 19:11 → 2N 19:11
DX: E03.9 Hypothyroidism, unspecified; G62.9 Polyneuropathy, unspecified; C80.1 Malignant (primary) neoplasm, unspecified; R97.20 Elevated prostate specific antigen [PSA]; Z79.899 Other long term (current) drug therapy; Z79.82 Long term (current) use of aspirin; K21.9 Gastro-esophageal reflux disease without esophagitis; N18.30 Chronic kidney disease, stage 3 unspecified; D64.9 Anemia, unspecified; K92.1 Melena